=== PATIENT | male | born 1965 | race Caucasian/White ===

== ENCOUNTER 2020-10-28 11:54 | Emergency (ER) | payer OTHER ==
[2020-10-28 12:25] LABS: BASOPHIL 0.7 % (0-2); EOSINOPHIL 0.8 % (0-5); HGB 16.8 g/dl (13.2-18.0); LYMPHOCYTE 13.4 % (15-48); MCH 30.4 pg (25.0-31.0); MCHC 33.6 g/dL (32.0-36.0); MCV 90.6 fL (78.0-100.0); MONOCYTE 7.8 % (0-12); MPV 8.7 fL (6.0-9.5); NEUTROPHIL 76.9 % (41-80); NRBC 0; PLT 309 K/uL (150-400); RBC 5.52 M/uL (4.70-6.00); RDW 12.5 % (11.5-14.0); WBC 11.2 K/uL (4.0-10.5)
[2020-10-28 12:37] LABS: ALBUMIN 4.2 g/dL (3.4-5.0); BILIRUBIN - TOTAL 0.5 mg/dL (0.2-1.0); BUN/CREAT RATIO (CALC) 13.1 RATIO; CREATININE 0.99 mg/dL (0.67-1.17); GLOBULIN (CALCULATION) 3.3 g/dL; TOTAL PROTEIN 7.5 g/dL (6.4-8.2)
== END 2020-10-28 15:15 | disposition home or self-care (01) ==
LOC: FER 11:54
PROVIDERS: Emergency Medicine
DX: R07.89 Other chest pain (principal); R06.02 Shortness of breath; F17.210 Nicotine dependence, cigarettes, uncomplicated
CPT/HCPCS: 36415; 71045; 80053; 84484; 85025; 85730; 93005